=== PATIENT | male | born 1970 | race Caucasian/White ===

== ENCOUNTER 2019-02-23 00:54 | Emergency (ER) | payer SELFPAY ==
[2019-02-23] MEDS ORDERED: Acetaminophen 500 MG TAB PO ONE (01:31)
[2019-02-23] MEDS ORDERED: Acetaminophen 500 MG TAB ONE (01:33)
--- NOTE | 2019-02-23 01:40 | ED Physician Chart ---
ED Chief Complaint/HPI - Patient Information Date Seen:: 02/23/19 Time Seen:: 01:30 Chief Complaint:: garber posterior has had 1 year prior associated nausea History of Present Illness:: related to bp elevation per patient Allergies:: Allergies Allergy/AdvReac Type Severity Reaction Status Date / Time No Known Allergies Allergy Verified 02/23/19 01:10 Vitals:: Vital Signs - 8 hr 02/23/19 01:10 Temp 98.8 F HR 88 RR 18 BP 161/112 O2 Sat % 100 Historian:: Patient Review:: Nurse's Note Reviewed ED Review of Systems - Review of Systems General/Constitutional: No fever Head: Headache Eyes: No loss of vision ENT: No earache Neck: No neck pain Cardio Vascular: No chest pain Pulmonary: No SOB GI: Nausea G/U: No dysuria Musculoskeletal: No bone or joint pain Psychiatric: No prior psych history Hematopoietic: No bruising Allergic/Immuno: No urticaria Neurological: No syncope ED Past Medical History - Past Medical History Past Medical History: HTN Family History: None Medication: None Family Medical History - Family Member Mother History Unknown: Yes ED Physical Exam - Physical Examination General/Constitutional: Awake, Well-developed, well-nourished, Alert, No distress, GCS 15, Non-toxic appearing, Ambulatory Head: Atraumatic Eyes: Lids, conjuctiva normal Skin: Nl inspection ENMT: External ears, nose nl Neck: Nontender, No nuchal rigidity Respiratory: Nl effort/Exclusion Cardio Vascular: RRR, No murmur, gallop, rubs, NL S1 S2 GI: No tenderness/rebounding/guarding : No CVA tenderness Extremities: No tenderness or effusion Neuro/Psych: Alert/oriented, Normal sensory exam, Normal motor strength, Judgement/insight normal, Mood normal, Normal gait Misc: Normal back ED Assessment - Assessment General Assessment: cephalgia with hypertention ED Septic Shock - . Is Septic Shock (SBP<90, OR Lactate>4 mmol\L) present?: No - <6hrs of presentation: Vital Signs: Vital Signs - 8 hr 02/23/19 01:10 Temp 98.8 F HR 88 RR 18 BP 161/112 O2 Sat % 100 ED Reassessment (Disposition) - Reassessment Reassessment Condition:: Improved - Aftercare/Follow up Instructions Aftercare/Follow-Up Instructions:: Counseled pt regarding lab results/diagnosis & need follow up, Refer to Discharge Instructions, Counseled pt & family regarding lab results/diagnosis & need follow up - Patient Disposition Discharge/Transfer:: Home (see pmd in am monitor bp)
[2019-02-23 01:47] LABS: HEMATOCRIT 44.8 % (41.0-60)
[2019-02-23 01:50] LABS: BASOPHILE ABSOLUTE 0.6 Th/cumm (0-0.2); HEMOGLOBIN 15.3 gm/dL (12-16); LYMPHOCYTE ABSOLUTE 3.4 Th/cmm (1.5-3.0); MEAN CELL VOLUME 92.2 fl (80-99); MEAN CORPUSCULAR HEMOGLOBIN 31.6 pg (26.0-30.0); MEAN CORPUSCULAR HGB CONC 34.3 pg (28.0-36.0); NEUTROPHILE ABSOLUTE 4.6 Th/cmm (1.8-8.0); PLATELET COUNT 178 Th/cmm (150-400); RED BLOOD COUNT 4.86 Mil/cmm (4.30-5.70); RED CELL DISTRIBUTION WIDTH 12.5 % (11.5-20.0); WHITE BLOOD COUNT 9.7 Th/cmm (4.8-10.8)
[2019-02-23 02:00] LABS: ALB/GLOB RATIO 1.6 (1.0-1.8); ALBUMIN 4.4 gm/dL (4.2-5.5); ALKALINE PHOSPHATASE 87 U/L (34-104); ANION GAP 12.6 (7.0-16.0); BUN - UREA NITROGEN 12 mg/dL (7-25); CALCIUM SERUM 9.3 mg/dL (8.6-10.3); CARBON DIOXIDE 24.7 mEq/L (21.0-31.0); CHLORIDE 105 mEq/L (98-107); CREATININE - SERUM 0.7 mg/dL (0.7-1.3); GFR AFRICAN-AMERICAN > 60.0 ml/min (>90); GFR NON AFRICAN-AMERICAN > 60.0 ml/min; GLUCOSE 117 mg/dL (70-105); POTASSIUM SERUM 3.3 mEq/L (3.5-5.1); SGOT 36 U/L (13-39); SGPT/ALT 51 U/L (7-52); SODIUM SERUM 139 mEq/L (136-145); TOTAL PROTEIN,SERUM 7.2 gm/dL (6.0-8.3)
[2019-02-23] MEDS ORDERED: Potassium Chloride 20 mEq ER Tab PO ONE ×2 (02:49→02:50)
[2019-02-23 02:52] LABS: BAND NEUTROPHILE 0 % (0-10); BASOPHIL 0 % (0-3); EOSINOPHIL 4 % (0-5); LYMPHOCYTE 34 % (20-50); MONOCYTE 13 % (2-10); NEUTROPHILS 49 % (40-80); PLATELET ESTIMATE ADEQUATE (NORMAL)
--- NOTE | 2019-02-23 08:52 | Diagnostic Imaging Report ---
CT scan of the brain without contrast History: Headache Total DLP equals 774 CTDI equals 41.8 Axial sections were obtained from the base of the skull to the vertex. There is a normal ventricular system size. No focal parenchymal lesions are seen. No evidence of any mass effect or shift of midline structures. No extra-axial masses or abnormal fluid collections. Impression: Negative examination
== END 2019-02-23 03:22 | disposition home or self-care (01) ==
LOC: ER 00:54
DX: I10 Essential (primary) hypertension (principal); R51 Headache
CPT/HCPCS: 36415-UA; 70450-TC; 80053-TC; 85007-TC; 85025-TC; Z7610